=== PATIENT | female | born 1980 | race Caucasian/White ===

== ENCOUNTER → 2017-12-04 | Outpatient (CLI) | END | disposition home or self-care (01) ==

== ENCOUNTER 2018-06-05 10:02 | Inpatient (IN) | payer OTHER ==
[~2018-06-05] VITALS: Ht 160 cm; Wt 75.9 kg
[2018-06-05] MEDS ORDERED: PREN-93 PO (10:20)
--- NOTE | 2018-06-05 11:50 | TRIAGE ---
OB Triage Datetime Report Generated by CPN: 06/05/2018 11:49 Datetime: 06/05/2018 11:27 Stage of : OB Triage Maternal Assessment Level of Consciousness: Fully Conscious DTR's/Clonus: DTRs 1+ Headache: Denies Breath Sounds, Left: Clear and Equal Breath Sounds, Right: Clear and Equal Nausea/Vomiting: Denies RUQ Epigastric Pain: Denies Labor Evaluation Frequency: IRREGULAR Monitor Mode: External Duration (sec)2399: 40-70 Quality: Mild Pattern: Normal: <= 5 Contractions in 10 Minutes Resting Tone Negley: Relaxed Heart Rate FHR Baseline Rate: 145 Monitor Mode: External US Variability: Moderate 6-25 bpm Accelerations: 15X15 Decelerations: None Category: Category I Pain Assessment Pain Scale: 0 Pain Presence: None/Denies Pain Type: N/A Pain Goal: 3 Vaginal Exam Membrane Status: Intact Datetime: 06/05/2018 10:38 Stage of : OB Triage Maternal Assessment Level of Consciousness: Fully Conscious DTR's/Clonus: DTRs 1+ Headache: Denies Blurred Vision: No Respiratory Effort: Unlabored Breath Sounds, Left: Clear and Equal Breath Sounds, Right: Clear and Equal Nausea/Vomiting: Denies RUQ Epigastric Pain: Denies Facial Edema: None Monitor Mode: External Resting Tone Negley: Relaxed Heart Rate FHR Baseline Rate: 145 Monitor Mode: External US Variability: Moderate 6-25 bpm Accelerations: 15X15 Decelerations: None Category: Category I Pain Assessment Pain Scale: 0 Pain Presence: None/Denies Pain Type: N/A Pain Goal: 3 Vaginal Exam Membrane Status: Intact Datetime: 06/05/2018 10:15 Assessment Type: Triage Maternal Assessment Level of Consciousness: Fully Conscious DTR's/Clonus: DTRs 2+; No Clonus Headache: Denies Blurred Vision: No Respiratory Effort: Unlabored; Regular Rhythm; Equal Expansion Breath Sounds, Left: Clear and Equal Breath Sounds, Right: Clear and Equal Nausea/Vomiting: Denies RUQ Epigastric Pain: Denies Lower Extremities Edema: None Degree: None Upper Extremities Edema: None Degree: None Facial Edema: None Fall Risk Assessment History of Falling: (0) No Secondary Diagnosis: (0) No Ambulatory Aid: (0) Bedrest/Nurse Assist IV Therapy: (0) No Gait: (0) Normal/Bedrest/Immobile Mental Status: (0) Oriented to Own Ability Fall Score: 0 Fall Risk Score Definition: No Risk: No action required Datetime: 06/05/2018 10:01 Time of Arrival: 06/05/2018 10:01 EGA: 34.5 Arrived By: Wheelchair Arrived From: Other Unit in Hospital Chief Complaint: PT SENT TO [facility] FOR EXTENDED MONITORING DUE TO DECELS Movement: Present Contractions: Denies/Absent Rupture of Membranes: Denies Vaginal Bleeding: None Vaginal Discharge: Denies Recent Sexual Intercouse: Denies Abdominal Trauma: Not Applicable Additional Patient Complaints: NONE Time Provider Notified: 06/05/2018 10:17 Provider Notified: JENNIFER Initial Plan: MONITOR
[2018-06-05] MEDS ORDERED: ASPI-903 PO (12:30)
[2018-06-05] MEDS: LACTATED RINGER'S 1,000 ML IV SCH ×2 (12:57→21:04)
[2018-06-05] MEDS ORDERED: MAGNESIUM SULFATE 4 GM/100 ML 100 ML IVPB ONE (19:30)
[2018-06-05] MEDS: MAGNESIUM SULFATE 20 GM/500 ML 500 ML IV SCH (20:45)
[2018-06-05] MEDS ORDERED: ONDANSETRON 4 MG INJ IV PRN (21:00)
[2018-06-05] MEDS ORDERED: ACETAMINOPHEN 325 MG TAB PO PRN (21:00)
[2018-06-05] MEDS: BETAMET NA PHOS/AC(6 MG/ML) 2 ML INJ SYG IM SCH (21:47)
[2018-06-06] MEDS: MAGNESIUM SULFATE 20 GM/500 ML 500 ML IV SCH ×2 (06:07→16:19)
[2018-06-06] MEDS: FERROUS SULFATE (EC) 325 MG TAB PO SCH (08:54)
[2018-06-06] MEDS: PRENATAL VITAMIN PO SCH (08:54)
[2018-06-06] MEDS: LACTATED RINGER'S 1,000 ML IV SCH ×2 (10:33→23:44)
--- NOTE | 2018-06-06 18:24 | HP ---
Date/Time of Note Date/Time of Note Late entry DATE: 06/06/18 TIME: 18:20 OB - History Hx of Present Free Text/Dictation 37-year-old female 2 para 1 at 34+ weeks gestation admitted because of evidence of heart tone decelerations of the first or second twin extending over a few minutes Patient was also noticed to have persistent uterine contractions Currently patient has multiple gestations with monochorionic diamniotic Chief Complaint: Uterine contractions Last Menstrual Period: Oct 13, 2017 Estimated Due Date: July 12, 2018 : 2 Para: 1 Care: Good Care Ultrasounds: Abnormal US findings (Gallia/Di twin) Obstetrical Complications: Other (Multiple gestation and advanced maternal age) Medical Complications: Other (Previous section x1) Past Family/Social History * Past Medical, Surgical, Family and Obstetric Histories reviewed from chart. OB Admission Exam Physical Exam HEENT: WNL Heart: Rhythm Normal Lungs: Clear, Equal Abdomen: WNL Extremities: Normal Reflexes: Normal Cervical Dilatation: Fingertip Effacement: 0% Station: -3 Membranes: Intact Heart Rate: 140's (Reactive on both infants) Accelerations: Accelerations Present Decelerations: No Decelerations Varibility: Marked Contractions on Admission: 6-10 Minutes Apart Date/Time Contractions Began: Day of admission Frequency of Contractions: Unknown Duration: Unknown Intensity: Mild Last 72 hours Lab Results Magnesium Level Test 06/06/18 03:18 06/06/18 08:19 06/06/18 11:48 Magnesium Level 4.9 H 5.2 *H 5.2 *H OB Assessment/Plan Reason for admission: labor Other Assessment: Prolonged heart tone deceleration contractions Multiple gestation with mono/Di twin Advanced maternal age Other plan: Start magnesium sulfate for neuro prophylaxis Steroids were ordered and given SUZI CHRISTINA MD Jun 06, 2018 18:24
--- NOTE | 2018-06-06 18:26 | PN ---
Date/Time of Note Date/Time of Note DATE: 06/06/18 TIME: 18:25 OB Subjective Subjective Subjective Currently has no uterine contractions and no complaint of uterine contractions OB Objective Objective Objective Vital signs are stable as well as general physical exam heart tones appear to be reactive without decelerations for over 24 hours On electronic monitoring no contractions seen OB Assessment/Plan Other Assessment: contractions at 34+ weeks with multiple gestation Other plan: We will DC magnesium sulfate after the second dose of betamethasone Place patient on p.o. nifedipine Possibly DC patient following day SUZI CHRISTINA MD Jun 06, 2018 18:26
[2018-06-06] MEDS: BETAMET NA PHOS/AC(6 MG/ML) 2 ML INJ SYG IM SCH (21:53)
[2018-06-06] MEDS: NIFEdipine 10 MG CAP PO SCH (21:54)
[2018-06-07] MEDS: NIFEdipine 10 MG CAP PO SCH ×3 (04:26→17:49)
[2018-06-07] MEDS: FERROUS SULFATE (EC) 325 MG TAB PO SCH (08:28)
[2018-06-07] MEDS: PRENATAL VITAMIN PO SCH (08:28)
--- NOTE | 2018-06-07 16:48 | DS ---
Date/Time of Note Date/Time of Note DATE: 06/07/18 TIME: 16:47 Obstetrical Discharge Record Final Diagnosis Final Diagnosis: not delivered Other Final Diagnosis Multiple gestation and twin contractions Complications Tocolytics: Magnesium Sulfate, Other (Nifedipine) Condition on Discharge Physical Assessment Voiding: Yes Bowel Movement: Yes Breast: Soft, non-tender, Filling Fundus: Other (Fundal height is 39 cm) Abdomen and Incision: Jason is soft and gravid with reactive heart tones On electronic monitoring no contractions seen Episiotomy: Not applicable Calf Tenderness: No Patient Condition: Good SUZI CHRISTINA MD Jun 07, 2018 16:48
--- NOTE | 2018-06-07 16:59 | PD.PPDC ---
[employer]ISH[employer] Discharge Instruction Provider Information Physician Information 37-year-old female admitted with contractions at 34+ weeks of multiple gestation contractions were tocolysed using magnesium sulfate and thereafter p.o. nifedipine Diagnosis [id number] Final Diagnosis: [id number] labor Condition [id number] Patient Condition: Tauru2u Good Diet [id number] Diet: [id number] Resume Regular Diet Activity/Restrictions [id number] Activity: Blqbd1y Bedrest May Shower [id number] Restrictions: [id number] No Exercising Nothing in the Vagina [id number] Return to Work or School: [id number] Jun 07, 2018 (until 2 months afer delivery ) Follow-up Follow-up with Physician: 3, Day/Days (In antepartum testing unit) Return to clinic for Comment: Pelvic and bedrest until delivery SUZI CHRISTINA MD Jun 07, 2018 16:59
[2018-06-07] MEDS ORDERED: NIFE10CA PO (17:00)
== END 2018-06-07 19:40 | disposition home or self-care (01) | DRG 831 ==
LOC: OBT 10:02 → L-D 10:02 → PP1 11:37 → OBT 11:47
PROVIDERS: ADMIT Obstetrics & Gynecology; ATTEND Obstetrics & Gynecology
DX: O36.8330 Maternal care for abnormalities of the fetal heart rate or rhythm, third trimester, not applicable or unspecified (principal); O60.03 Preterm labor without delivery, third trimester; Z3A.34 34 weeks gestation of pregnancy; O30.033 Twin pregnancy, monochorionic/diamniotic, third trimester; O34.219 Maternal care for unspecified type scar from previous cesarean delivery
CPT/HCPCS: 76818; 83735; G0463; J0702; J2405; J3475; J7120

== ENCOUNTER 2018-06-14 20:34 | Inpatient (IN) | payer OTHER ==
[~2018-06-14] VITALS: Ht 160 cm; Wt 76.5 kg
[~2018-06-14 20:34] MED LIST: ASPI-903 PO; NIFE10CA PO; PREN-93 PO
[2018-06-14 20:48] VITALS: BP 118/83; PULSE 113; RESP 19; Ht 160 cm; Wt 76.5 kg
[2018-06-14] MEDS ORDERED: FER325 PO (21:03)
[2018-06-14] MEDS ORDERED: CITRACAL PO (21:03)
[2018-06-14] MEDS ORDERED: TERBUTALINE 1 MG/ML INJ SC ONE (21:30)
[2018-06-14] MEDS: LACTATED RINGER'S 1,000 ML IV SCH ×2 (21:35→22:09)
[2018-06-15] MEDS: NIFEdipine 10 MG CAP PO SCH ×3 (00:06→11:53)
--- NOTE | 2018-06-15 00:35 | TRIAGE ---
OB Triage Datetime Report Generated by CPN: 06/15/2018 00:34 Datetime: 06/15/2018 00:15 Monitor Mode: External Monitor Mode: External US Comments: MONITOR ON, PT IN FBC1 Datetime: 06/15/2018 00:09 Labor Evaluation Frequency: X3/HR Monitor Mode: External Duration (sec)2399: 50-110 Quality: Mild Resting Tone [place]: Relaxed Contraction Comments: PT DENIES FEELING CONTRACTIONS Heart Rate FHR Baseline Rate: 140 Monitor Mode: External US Variability: Moderate 6-25 bpm Accelerations: 15X15 Decelerations: None Category: Category I Comments: MONITOR OFF, PT AMBULATED TO FBC1 ACCOMPANIED BY RN _ FOB Pain Assessment Pain Scale: 0 Pain Presence: None/Denies Pain Type: N/A Datetime: 06/14/2018 23:57 Stage of : Antepartum Assessment Type: Admission Assessment Vaginal Bleeding: None Maternal Assessment Level of Consciousness: Fully Conscious DTR's/Clonus: DTRs 2+; No Clonus Headache: Denies Blurred Vision: No Respiratory Effort: Unlabored; Regular Rhythm; Equal Expansion Breath Sounds, Left: Clear and Equal Breath Sounds, Right: Clear and Equal Nausea/Vomiting: Denies RUQ Epigastric Pain: Denies Lower Extremities Edema: None Degree: None Upper Extremities Edema: None Degree: None Facial Edema: None Fall Risk Assessment History of Falling: (0) No Secondary Diagnosis: (0) No Ambulatory Aid: (0) Bedrest/Nurse Assist IV Therapy: (20) Yes Gait: (0) Normal/Bedrest/Immobile Mental Status: (0) Oriented to Own Ability Fall Score: 20 Fall Risk Score Definition: No Risk: No action required Pain Assessment Pain Scale: 0 Pain Presence: None/Denies Pain Type: N/A Datetime: 06/14/2018 23:35 Time of Arrival: 06/14/2018 23:35 EGA: 36.0 Arrived By: Wheelchair Arrived From: Other Unit in Hospital Datetime: 06/14/2018 23:10 Labor Evaluation Frequency: NONE Monitor Mode: External Duration (sec)2399: 0 Resting Tone [place]: Relaxed Heart Rate FHR Baseline Rate: 140 Monitor Mode: External US FHR Baseline Changes: No Baseline Change Variability: Moderate 6-25 bpm Accelerations: 15X15 Decelerations: None Category: Category I Pain Assessment Pain Scale: 0 Pain Presence: None/Denies Pain Type: N/A Datetime: 06/14/2018 23:01 Monitor Mode: External Monitor Mode: External US Datetime: 06/14/2018 22:30 Monitor Mode: External Datetime: 06/14/2018 22:28 Monitor Mode: External Datetime: 06/14/2018 22:10 Labor Evaluation Frequency: none Monitor Mode: External Duration (sec)2399: 0 Resting Tone [place]: Relaxed Contraction Comments: no contractions noted in the past half hour, some uterine irritability noted; pt denies feeling any contractions since administration of Terbutaline and start of IV and no contra ctions palpated by RN Heart Rate FHR Baseline Rate: 140 Monitor Mode: External US Variability: Moderate 6-25 bpm Accelerations: 15X15 Decelerations: None Category: Category I Pain Assessment Pain Scale: 0 Pain Presence: None/Denies Pain Type: N/A Datetime: 06/14/2018 22:07 Pain Assessment Pain Scale: 0 Pain Presence: None/Denies Pain Type: N/A Datetime: 06/14/2018 21:36 Labor Evaluation Frequency: 1-6 Monitor Mode: External Duration (sec)2399: 50-90 Quality: Moderate Resting Tone [place]: Relaxed Heart Rate FHR Baseline Rate: 140 Monitor Mode: External US Variability: Moderate 6-25 bpm Accelerations: 15X15 Decelerations: None Category: Category I Datetime: 06/14/2018 21:10 Labor Evaluation Frequency: 3-7 Monitor Mode: External Duration (sec)2399: 60-90 Quality: Moderate Resting Tone [place]: Relaxed Heart Rate FHR Baseline Rate: 145 Monitor Mode: External US Variability: Moderate 6-25 bpm Accelerations: 15X15 Decelerations: None Category: Category I Datetime: 06/14/2018 21:08 Vaginal Exam Dilatation (cms): 0.5 Station: -3 Exam By: MARIUSZ RN Membrane Status: Intact Vaginal Bleeding: None Cervix, Consistency: Moderate Cervix, Position: Midposition Datetime: 06/14/2018 20:53 Time of Arrival: 06/14/2018 20:27 EGA: 36.0 Arrived By: Ambulatory Arrived From: Home Chief Complaint: UC'S SINCE YESTERDAY 06/12 AROUND 0900 (STRONGER WHEN SHE IS STANDING OR WALKING, WE BRIT WHEN RESTING) Movement: Present Contractions: Regular Time Contractions Began: 06/12/2018 09:00 Contractions: [id number] Rupture of Membranes: Denies Vaginal Bleeding: None Vaginal Discharge: Denies Recent Sexual Intercouse: Denies Abdominal Trauma: Not Applicable Patient Complaints: Contractions Additional Patient Complaints: NAUSEA X1 EARLIER TODAY Time Provider Notified: 06/14/2018 21:06 Provider Notified: Initial Plan: VS, EFM, SVE TERB X1, IV HYDRATION, UA, CBC, BPP w/GÓMEZ Datetime: 06/14/2018 20:48 Maternal Assessment Level of Consciousness: Fully Conscious DTR's/Clonus: DTRs 2+; No Clonus Headache: Denies Blurred Vision: No Respiratory Effort: Unlabored; Regular Rhythm; Equal Expansion Breath Sounds, Left: Clear and Equal Breath Sounds, Right: Clear and Equal Nausea/Vomiting: Hx of Nausea/Vomiting (Annotations: PT STATES SHE FELT NAUSEOUS EARLIER TODAY BUT NOT CURRENTLY) RUQ Epigastric Pain: Denies Lower Extremities Edema: None Degree: None Upper Extremities Edema: None Degree: None Facial Edema: None Temperature Route: Oral Fall Risk Assessment History of Falling: (0) No Secondary Diagnosis: (0) No Ambulatory Aid: (0) Bedrest/Nurse Assist IV Therapy: (0) No Gait: (0) Normal/Bedrest/Immobile Mental Status: (0) Oriented to Own Ability Fall Score: 0 Fall Risk Score Definition: No Risk: No action required Pain Assessment Pain Scale: 7 Pain Presence: Intermittent Pain Type: Contraction Pain Location: Abdomen; Back Pain Relief Measures: Comfort Measures Datetime: 06/07/2018 17:46 Labor Evaluation Frequency: 1 Monitor Mode: External Duration (sec)2399: 60 Quality: Mild Resting Tone [place]: Relaxed Heart Rate FHR Baseline Rate: 135 Monitor Mode: External US FHR Baseline Changes: No Baseline Change Variability: Moderate 6-25 bpm Accelerations: 15X15 Decelerations: None Category: Category I Pain Presence: None/Denies Datetime: 06/07/2018 16:29 Labor Evaluation Frequency: 1 Monitor Mode: External Duration (sec)2399: 120 Quality: Mild Resting Tone [place]: Relaxed Datetime: 06/07/2018 12:09 Labor Evaluation Frequency: 0 Monitor Mode: External Resting Tone [place]: Relaxed Datetime: 06/07/2018 11:29 Labor Evaluation Frequency: 0 Monitor Mode: External Resting Tone [place]: Relaxed Datetime: 06/07/2018 11:06 Contraction Comments: toco on Datetime: 06/07/2018 09:56 Comments: monitors off Datetime: 06/07/2018 08:21 Assessment Type: Ongoing Assessment Maternal Assessment Level of Consciousness: Fully Conscious DTR's/Clonus: DTRs 2+; No Clonus Headache: Denies Blurred Vision: No Respiratory Effort: Unlabored; Regular Rhythm; Equal Expansion Breath Sounds, Left: Clear and Equal Breath Sounds, Right: Clear and Equal Nausea/Vomiting: Denies RUQ Epigastric Pain: Denies Facial Edema: None Fall Risk Assessment History of Falling: (0) No Secondary Diagnosis: (0) No Ambulatory Aid: (0) Bedrest/Nurse Assist Gait: (0) Normal/Bedrest/Immobile Mental Status: (0) Oriented to Own Ability Datetime: 06/07/2018 07:56 Labor Evaluation Frequency: 1 Monitor Mode: External Duration (sec)2399: 60 Quality: Mild Resting Tone [place]: Relaxed Heart Rate FHR Baseline Rate: 130 Monitor Mode: External US FHR Baseline Changes: No Baseline Change Variability: Moderate 6-25 bpm Accelerations: 15X15 Decelerations: None Category: Category I Pain Presence: None/Denies Datetime: 06/07/2018 07:11 Labor Evaluation Frequency: 0 Monitor Mode: External Resting Tone [place]: Relaxed Heart Rate FHR Baseline Rate: 130 Monitor Mode: External US FHR Baseline Changes: No Baseline Change Variability: Moderate 6-25 bpm Accelerations: 15X15 Decelerations: None Category: Category I Pain Presence: None/Denies Datetime: 06/07/2018 06:00 Labor Evaluation Frequency: 0 Monitor Mode: External Duration (sec)2399: denies Resting Tone [place]: Relaxed Heart Rate FHR Baseline Rate: 140 Monitor Mode: External US Variability: Moderate 6-25 bpm Accelerations: 15X15 Decelerations: None Category: Category I Comments: blue line Pain Presence: None/Denies Datetime: 06/07/2018 05:00 Labor Evaluation Frequency: 0 Monitor Mode: External Resting Tone [place]: Relaxed Heart Rate FHR Baseline Rate: 140 Monitor Mode: External US Variability: Moderate 6-25 bpm Accelerations: 15X15 Decelerations: None Category: Category I Comments: blue line Pain Presence: None/Denies Datetime: 06/07/2018 04:24 Maternal Assessment Level of Consciousness: Fully Conscious Headache: Denies Blurred Vision: No Temperature Route: Oral Pain Presence: None/Denies Datetime: 06/07/2018 04:00 Labor Evaluation Frequency: x2 Monitor Mode: External Duration (sec)2399: 40-70 Quality: Mild Resting Tone [place]: Relaxed Heart Rate FHR Baseline Rate: 125 Monitor Mode: External US Variability: Moderate 6-25 bpm Accelerations: 15X15 Decelerations: None Category: Category I Comments: blue line Pain Presence: None/Denies Datetime: 06/07/2018 03:58 Stage of : Antepartum Datetime: 06/07/2018 03:00 Labor Evaluation Frequency: 0 Monitor Mode: External Resting Tone [place]: Relaxed Heart Rate FHR Baseline Rate: 130 Monitor Mode: External US Variability: Moderate 6-25 bpm Accelerations: 15X15 Decelerations: None Category: Category I Comments: blue line. Datetime: 06/07/2018 02:00 Labor Evaluation Frequency: X1 Monitor Mode: External Duration (sec)2399: 60 Quality: Mild Resting Tone [place]: Relaxed Heart Rate FHR Baseline Rate: 135 Monitor Mode: External US Variability: Moderate 6-25 bpm Accelerations: 15X15 Decelerations: None Category: Category I Comments: BLUE LINE. PT IS ON HER BACK. Pain Presence: None/Denies Datetime: 06/07/2018 01:22 Comments: ULTRASOUND DONE,RESUMED TO CFM. Datetime: 06/07/2018 01:02 Comments: ULTRASOUND AT BEDSIDE. Datetime: 06/07/2018 01:00 Labor Evaluation Frequency: IRREGULAR Duration (sec)2399: 40-110 Quality: Mild Resting Tone [place]: Relaxed Heart Rate FHR Baseline Rate: 135 Monitor Mode: External US Variability: Moderate 6-25 bpm Accelerations: 15X15 Decelerations: None Category: Category I Comments: BLUE LINE. Pain Presence: None/Denies Pain Assessment Comments: PT DENIES FEELING THE UC'S. Datetime: 06/07/2018 00:00 Labor Evaluation Frequency: OCCASIONAL Monitor Mode: External Duration (sec)2399: 50-70 Quality: Mild Resting Tone [place]: Relaxed Heart Rate FHR Baseline Rate: 135 Monitor Mode: External US Variability: Moderate 6-25 bpm Accelerations: 15X15 Decelerations: Variable Category: Category II Pain Presence: None/Denies Datetime: 06/06/2018 23:00 Labor Evaluation Frequency: OCCASIONAL Monitor Mode: External Duration (sec)2399: 50-60 Quality: Mild Resting Tone [place]: Relaxed Heart Rate FHR Baseline Rate: 135 Monitor Mode: External US Variability: Moderate 6-25 bpm Accelerations: 10X10 Decelerations: None Category: Category I Comments: BLUE LINE. Pain Presence: None/Denies Datetime: 06/06/2018 22:00 Labor Evaluation Frequency: x2 Monitor Mode: External Duration (sec)2399: 40-70 Quality: Mild Resting Tone [place]: Relaxed Heart Rate FHR Baseline Rate: 140 Monitor Mode: External US Variability: Moderate 6-25 bpm Accelerations: 15X15 Decelerations: None Category: Category I Comments: blue line Pain Presence: None/Denies Datetime: 06/06/2018 21:00 Labor Evaluation Frequency: x1 Monitor Mode: External Duration (sec)2399: 70 Quality: Mild Resting Tone [place]: Relaxed Heart Rate FHR Baseline Rate: 140 Monitor Mode: External US Variability: Moderate 6-25 bpm Accelerations: 15X15 Decelerations: None Category: Category I Comments: blue line. Pain Presence: None/Denies Datetime: 06/06/2018 20:00 Stage of : Antepartum Assessment Type: Ongoing Assessment Maternal Assessment Level of Consciousness: Fully Conscious DTR's/Clonus: DTRs 2+; No Clonus Headache: Denies Blurred Vision: No Respiratory Effort: Unlabored; Regular Rhythm; Equal Expansion Breath Sounds, Left: Clear and Equal Breath Sounds, Right: Clear and Equal Nausea/Vomiting: Denies RUQ Epigastric Pain: Denies Lower Extremities Edema: None Degree: None Upper Extremities Edema: None Degree: None Facial Edema: None Temperature Route: Oral Fall Risk Assessment History of Falling: (0) No Secondary Diagnosis: (0) No Ambulatory Aid: (0) Bedrest/Nurse Assist IV Therapy: (0) No Gait: (0) Normal/Bedrest/Immobile Mental Status: (0) Oriented to Own Ability Fall Score: 0 Fall Risk Score Definition: No Risk: No action required Labor Evaluation Frequency: occasional Monitor Mode: External Duration (sec)2399: 50-70 Quality: Mild Resting Tone [place]: Relaxed Contraction Comments: abdomen soft upon palpation,pt denies feeling any uc's. Heart Rate FHR Baseline Rate: 130 Monitor Mode: External US Variability: Moderate 6-25 bpm Accelerations: 15X15 Decelerations: None Category: Category I Comments: blue line,very difficult to trace fetus,pt likes to be in her side and frecuently changin g positions. Pain Presence: None/Denies Membrane Status: Intact Datetime: 06/06/2018 19:00 Stage of : Antepartum Maternal Assessment Level of Consciousness: Fully Conscious DTR's/Clonus: DTRs 2+ Headache: Denies Breath Sounds, Left: Clear and Equal Breath Sounds, Right: Clear and Equal Nausea/Vomiting: Denies RUQ Epigastric Pain: Denies Labor Evaluation Frequency: x2 Monitor Mode: External Duration (sec)2399: 60 Quality: Mild Resting Tone [place]: Relaxed Heart Rate FHR Baseline Rate: 125 Monitor Mode: External US FHR Baseline Changes: No Baseline Change Variability: Moderate 6-25 bpm Accelerations: 15X15 Decelerations: None Pain Presence: None/Denies Pain Type: N/A Datetime: 06/06/2018 18:15 Stage of : Antepartum Datetime: 06/06/2018 17:56 Stage of : Antepartum Maternal Assessment Level of Consciousness: Fully Conscious DTR's/Clonus: DTRs 2+ Headache: Denies Breath Sounds, Left: Clear and Equal Breath Sounds, Right: Clear and Equal Nausea/Vomiting: Denies RUQ Epigastric Pain: Denies Labor Evaluation Frequency: x4 Monitor Mode: External Duration (sec)2399: 60 Quality: Mild Resting Tone [place]: Relaxed Heart Rate FHR Baseline Rate: 125 Monitor Mode: External US FHR Baseline Changes: No Baseline Change Variability: Moderate 6-25 bpm Accelerations: 15X15 Decelerations: None Pain Presence: None/Denies Pain Type: N/A Datetime: 06/06/2018 16:56 Stage of : Antepartum Maternal Assessment Level of Consciousness: Fully Conscious DTR's/Clonus: DTRs 2+ Headache: Denies Breath Sounds, Left: Clear and Equal Breath Sounds, Right: Clear and Equal Nausea/Vomiting: Denies RUQ Epigastric Pain: Denies Labor Evaluation Frequency: x2 Monitor Mode: External Duration (sec)2399: 60 Quality: Mild Resting Tone [place]: Relaxed Heart Rate FHR Baseline Rate: 125 Monitor Mode: External US FHR Baseline Changes: No Baseline Change Variability: Moderate 6-25 bpm Accelerations: 15X15 Decelerations: None Pain Presence: None/Denies Pain Type: N/A Datetime: 06/06/2018 16:30 Stage of : Antepartum Pain Assessment Pain Scale: 5 Pain Presence: Constant Pain Type: Ache Pain Location: Head Pain Relief Measures: Comfort Measures Datetime: 06/06/2018 16:00 Stage of : Antepartum Temperature Route: Oral Datetime: 06/06/2018 15:56 Maternal Assessment Level of Consciousness: Fully Conscious DTR's/Clonus: DTRs 2+ Headache: Denies Breath Sounds, Left: Clear and Equal Breath Sounds, Right: Clear and Equal Nausea/Vomiting: Denies RUQ Epigastric Pain: Denies Labor Evaluation Frequency: x2 Monitor Mode: External Duration (sec)2399: 60 Quality: Mild Resting Tone [place]: Relaxed Heart Rate FHR Baseline Rate: 125 Monitor Mode: External US FHR Baseline Changes: No Baseline Change Variability: Moderate 6-25 bpm Accelerations: 15X15 Decelerations: None Pain Presence: None/Denies Pain Type: N/A Datetime: 06/06/2018 14:56 Maternal Assessment Level of Consciousness: Fully Conscious DTR's/Clonus: DTRs 2+ Headache: Denies Breath Sounds, Left: Clear and Equal Breath Sounds, Right: Clear and Equal Nausea/Vomiting: Denies RUQ Epigastric Pain: Denies Labor Evaluation Frequency: x2 Monitor Mode: External Duration (sec)2399: 60 Quality: Mild Resting Tone [place]: Relaxed Heart Rate FHR Baseline Rate: 125 Monitor Mode: External US FHR Baseline Changes: No Baseline Change Variability: Moderate 6-25 bpm Accelerations: 15X15 Decelerations: None Pain Presence: None/Denies Pain Type: N/A Datetime: 06/06/2018 13:56 Maternal Assessment Level of Consciousness: Fully Conscious DTR's/Clonus: DTRs 2+ Headache: Denies Breath Sounds, Left: Clear and Equal Breath Sounds, Right: Clear and Equal Nausea/Vomiting: Denies RUQ Epigastric Pain: Denies Labor Evaluation Frequency: x4 Monitor Mode: External Duration (sec)2399: 60 Quality: Mild Resting Tone [place]: Relaxed Heart Rate FHR Baseline Rate: 125 Monitor Mode: External US FHR Baseline Changes: No Baseline Change Variability: Moderate 6-25 bpm Accelerations: 15X15 Decelerations: None Pain Presence: None/Denies Pain Type: N/A Datetime: 06/06/2018 12:56 Maternal Assessment Level of Consciousness: Fully Conscious DTR's/Clonus: DTRs 2+ Headache: Denies Breath Sounds, Left: Clear and Equal Breath Sounds, Right: Clear and Equal Nausea/Vomiting: Denies RUQ Epigastric Pain: Denies Labor Evaluation Frequency: x4 Monitor Mode: External Duration (sec)2399: 60 Quality: Mild Resting Tone [place]: Relaxed Heart Rate FHR Baseline Rate: 125 Monitor Mode: External US FHR Baseline Changes: No Baseline Change Variability: Moderate 6-25 bpm Accelerations: 15X15 Decelerations: None Pain Presence: None/Denies Pain Type: N/A Datetime: 06/06/2018 12:23 Stage of : Antepartum Temperature Route: Oral Datetime: 06/06/2018 12:15 Monitor Mode: External US Datetime: 06/06/2018 11:56 Maternal Assessment Level of Consciousness: Fully Conscious DTR's/Clonus: DTRs 2+ Headache: Denies Breath Sounds, Left: Clear and Equal Breath Sounds, Right: Clear and Equal Nausea/Vomiting: Denies RUQ Epigastric Pain: Denies Labor Evaluation Frequency: x4 Monitor Mode: External Duration (sec)2399: 60 Quality: Mild Resting Tone [place]: Relaxed Heart Rate FHR Baseline Rate: 125 Monitor Mode: External US FHR Baseline Changes: No Baseline Change Variability: Moderate 6-25 bpm Accelerations: 15X15 Decelerations: None Pain Presence: None/Denies Pain Type: N/A Datetime: 06/06/2018 11:11 Monitor Mode: External US Datetime: 06/06/2018 10:56 Stage of : Antepartum Labor Evaluation Frequency: x1 Monitor Mode: External Duration (sec)2399: 60 Quality: Mild Resting Tone [place]: Relaxed Heart Rate FHR Baseline Rate: 125 Monitor Mode: External US FHR Baseline Changes: No Baseline Change Variability: Moderate 6-25 bpm Accelerations: 15X15 Decelerations: None Pain Presence: None/Denies Pain Type: N/A Datetime: 06/06/2018 09:56 Maternal Assessment Level of Consciousness: Fully Conscious DTR's/Clonus: DTRs 2+ Headache: Denies Breath Sounds, Left: Clear and Equal Breath Sounds, Right: Clear and Equal Nausea/Vomiting: Denies RUQ Epigastric Pain: Denies Labor Evaluation Frequency: x1 Monitor Mode: External Duration (sec)2399: 60 Quality: Mild Resting Tone [place]: Relaxed Heart Rate FHR Baseline Rate: 125 Monitor Mode: External US FHR Baseline Changes: No Baseline Change Variability: Moderate 6-25 bpm Accelerations: 15X15 Decelerations: None Pain Presence: None/Denies Pain Type: N/A Datetime: 06/06/2018 08:56 Labor Evaluation Frequency: X4 Monitor Mode: External Duration (sec)2399: 60 Quality: Mild Resting Tone [place]: Relaxed Heart Rate FHR Baseline Rate: 125 Monitor Mode: External US FHR Baseline Changes: No Baseline Change Variability: Moderate 6-25 bpm Accelerations: 15X15 Decelerations: None Pain Presence: None/Denies Pain Type: N/A Datetime: 06/06/2018 07:56 Labor Evaluation Frequency: x5 Monitor Mode: External Duration (sec)2399: 70-110 Quality: Mild Resting Tone [place]: Relaxed Heart Rate FHR Baseline Rate: 130 Monitor Mode: External US Variability: Moderate 6-25 bpm Accelerations: 15X15 Decelerations: None Pain Presence: None/Denies Pain Type: N/A Datetime: 06/06/2018 07:53 Stage of : Antepartum Assessment Type: Ongoing Assessment Maternal Assessment Level of Consciousness: Fully Conscious DTR's/Clonus: DTRs 2+; No Clonus Headache: Denies Blurred Vision: No Respiratory Effort: Unlabored; Regular Rhythm; Equal Expansion Breath Sounds, Left: Clear and Equal Breath Sounds, Right: Clear and Equal Nausea/Vomiting: Denies RUQ Epigastric Pain: Denies Facial Edema: None Fall Risk Assessment History of Falling: (0) No Secondary Diagnosis: (0) No Ambulatory Aid: (0) Bedrest/Nurse Assist IV Therapy: (0) No Gait: (0) Normal/Bedrest/Immobile Mental Status: (0) Oriented to Own Ability Fall Score: 0 Fall Risk Score Definition: No Risk: No action required Pain Assessment Pain Scale: 0 Pain Presence: None/Denies Pain Type: N/A Datetime: 06/06/2018 07:22 Stage of : Antepartum Datetime: 06/06/2018 06:56 Labor Evaluation Frequency: x5 Monitor Mode: External Duration (sec)2399: 70-110 Quality: Mild Resting Tone [place]: Relaxed Heart Rate FHR Baseline Rate: 130 Monitor Mode: External US Variability: Moderate 6-25 bpm Accelerations: 15X15 Decelerations: None Category: Category I Pain Presence: None/Denies Pain Type: N/A Datetime: 06/06/2018 06:00 Maternal Assessment Level of Consciousness: Fully Conscious DTR's/Clonus: DTRs 2+; No Clonus Labor Evaluation Frequency: X5 Monitor Mode: External Duration (sec)2399: 50-70 Quality: Mild Resting Tone [place]: Relaxed Heart Rate FHR Baseline Rate: 130 Monitor Mode: External US Variability: Moderate 6-25 bpm Accelerations: None Decelerations: None Category: Category I Pain Presence: None/Denies Pain Type: N/A Datetime: 06/06/2018 05:00 Labor Evaluation Frequency: X8 Monitor Mode: External Duration (sec)2399: 70-110 Quality: Mild Resting Tone [place]: Relaxed Heart Rate FHR Baseline Rate: 125 Monitor Mode: External US Variability: Moderate 6-25 bpm Accelerations: 15X15 Decelerations: None Category: Category I Pain Presence: None/Denies Pain Type: N/A Datetime: 06/06/2018 04:00 Maternal Assessment Level of Consciousness: Fully Conscious DTR's/Clonus: DTRs 2+; No Clonus Breath Sounds, Left: Clear and Equal Breath Sounds, Right: Clear and Equal Labor Evaluation Frequency: IRREG Monitor Mode: External Duration (sec)2399: 60-100 Duration (sec)2399: 60-90 Quality: Mild Resting Tone [place]: Relaxed Heart Rate FHR Baseline Rate: 120 Monitor Mode: External US Variability: Moderate 6-25 bpm Accelerations: 15X15 Decelerations: None Category: Category I Pain Presence: None/Denies Pain Type: N/A Datetime: 06/06/2018 02:54 Pain Presence: None/Denies Pain Type: N/A Datetime: 06/06/2018 02:03 Monitor Mode: External US Datetime: 06/06/2018 02:00 Maternal Assessment Level of Consciousness: Fully Conscious DTR's/Clonus: DTRs 2+; No Clonus Breath Sounds, Left: Clear and Equal Breath Sounds, Right: Clear and Equal Labor Evaluation Frequency: IRREG Monitor Mode: External Duration (sec)2399: 60-120 Quality: Mild Resting Tone [place]: Relaxed Heart Rate FHR Baseline Rate: 120 Monitor Mode: External US Variability: Moderate 6-25 bpm Accelerations: 15X15 Decelerations: None Category: Category I Pain Presence: None/Denies Pain Type: N/A Pain Assessment Comments: PT SLEEPING WITH EVEN UNLABORED BREATHING Datetime: 06/06/2018 01:01 Labor Evaluation Frequency: X3 Monitor Mode: External Duration (sec)2399: 100 Quality: Mild Resting Tone [place]: Relaxed Heart Rate FHR Baseline Rate: 135 Monitor Mode: External US Variability: Moderate 6-25 bpm Accelerations: 15X15 Decelerations: None Category: Category I Pain Presence: None/Denies Pain Type: N/A Datetime: 06/06/2018 01:00 Labor Evaluation Frequency: X2 Monitor Mode: External Duration (sec)2399: 80 Quality: Mild Resting Tone [place]: Relaxed Heart Rate FHR Baseline Rate: 130 Monitor Mode: External US Variability: Moderate 6-25 bpm Accelerations: 15X15 Decelerations: None Category: Category I Pain Presence: None/Denies Pain Type: N/A Datetime: 06/06/2018 00:46 Contraction Comments: TOCO ADJUSTED Datetime: 06/06/2018 00:00 Maternal Assessment Level of Consciousness: Fully Conscious DTR's/Clonus: DTRs 2+; No Clonus Breath Sounds, Left: Clear and Equal Breath Sounds, Right: Clear and Equal Labor Evaluation Frequency: X4 Monitor Mode: External Duration (sec)2399: 70-90 Quality: Mild Resting Tone [place]: Relaxed Heart Rate FHR Baseline Rate: 140 Monitor Mode: External US Variability: Moderate 6-25 bpm Accelerations: 15X15 Decelerations: None Category: Category I Pain Presence: None/Denies Pain Type: N/A Datetime: 06/05/2018 23:00 Headache: Denies Labor Evaluation Frequency: NONE Monitor Mode: External Resting Tone [place]: Relaxed Heart Rate FHR Baseline Rate: 135 Monitor Mode: External US Variability: Moderate 6-25 bpm Accelerations: None Decelerations: None Comments: POOR QUALITY TRACING Pain Presence: None/Denies Pain Type: N/A Datetime: 06/05/2018 22:00 Stage of : Antepartum DTR's/Clonus: DTRs 2+; No Clonus Headache: Denies Blurred Vision: No Labor Evaluation Frequency: X1 Monitor Mode: External Duration (sec)2399: 90 Quality: Mild Heart Rate FHR Baseline Rate: 135 Variability: Moderate 6-25 bpm Pain Type: N/A Datetime: 06/05/2018 21:00 Stage of : Antepartum Labor Evaluation Frequency: IRREG Duration (sec)2399: 50-80 Contraction Comments: PT DENIES FEELING CONTRACTIONS. Monitor Mode: External US Comments: LOC-RN AT BEDSIDE FOR ENTIRE HOUR TRYING TO FIND THE FHR THAT WOULD TRACE. FHT'S AUDIBL E WITH DOPPLER AND MONITOR BUT NOT GOOD ENOUGH TO TRACE FOR BOTH BABIES. Datetime: 06/05/2018 20:45 Pain Assessment Pain Scale: 5 Pain Presence: Constant Pain Type: Ache Pain Location: Head Pain Goal: 2 Pain Relief Measures: Comfort Measures Pain Assessment Comments: PT GOT A SLIGHT HEADACHE DURING THE MAGNESIUM BOLUS BUT DID NOT WANT ANYT DOMONIQUE FOR PAIN UNTIL SHE FELT LESS NAUSEOUS. Datetime: 06/05/2018 20:38 Monitor Mode: External US Datetime: 06/05/2018 20:00 Labor Evaluation Frequency: X8 Monitor Mode: External Duration (sec)2399: 60-90 Quality: Mild Resting Tone [place]: Relaxed Heart Rate FHR Baseline Rate: 140 Monitor Mode: External US Variability: Moderate 6-25 bpm Accelerations: 15X15 Decelerations: Variable Category: Category II Pain Presence: None/Denies Pain Type: N/A Pain Assessment Comments: PT DENIES FEELING ANY CARMPING Datetime: 06/05/2018 19:20 Stage of : Antepartum Assessment Type: Ongoing Assessment Maternal Assessment Level of Consciousness: Fully Conscious DTR's/Clonus: DTRs 2+; No Clonus Headache: Denies Blurred Vision: No Respiratory Effort: Unlabored; Regular Rhythm; Equal Expansion Breath Sounds, Left: Clear and Equal Breath Sounds, Right: Clear and Equal Nausea/Vomiting: Denies RUQ Epigastric Pain: Denies Facial Edema: None Temperature Route: Oral Fall Risk Assessment History of Falling: (0) No Secondary Diagnosis: (0) No Ambulatory Aid: (0) Bedrest/Nurse Assist IV Therapy: (0) No Gait: (0) Normal/Bedrest/Immobile Mental Status: (0) Oriented to Own Ability Fall Score: 0 Fall Risk Score Definition: No Risk: No action required Monitor Mode: External Contraction Comments: PT STATES SHE FEELS NO CRAMPING Monitor Mode: External US Comments: PT STATES + FM Pain Presence: None/Denies Pain Type: N/A Membrane Status: Intact Vaginal Bleeding: None Datetime: 06/05/2018 18:55 Labor Evaluation Frequency: x8 Monitor Mode: Palpation Duration (sec)2399: 50-80 Quality: Mild Pattern: Normal: <= 5 Contractions in 10 Minutes Resting Tone [place]: Relaxed Heart Rate FHR Baseline Rate: 135 Monitor Mode: External US Variability: Moderate 6-25 bpm Accelerations: 15X15 Decelerations: None Category: Category I Pain Presence: None/Denies Pain Type: N/A Datetime: 06/05/2018 18:00 Labor Evaluation Frequency: 2-5 Monitor Mode: External Duration (sec)2399: 50-70 Quality: Mild Pattern: Normal: <= 5 Contractions in 10 Minutes Resting Tone [place]: Relaxed Contraction Comments: pt. denies uc Heart Rate FHR Baseline Rate: 145 Monitor Mode: External US Variability: Moderate 6-25 bpm Accelerations: 15X15 Decelerations: None Category: Category I Pain Assessment Pain Scale: 0 Pain Presence: None/Denies Pain Type: N/A Pain Assessment Comments: 3 Datetime: 06/05/2018 17:00 Labor Evaluation Frequency: 2-5 Monitor Mode: External Duration (sec)2399: 50-100 Quality: Mild Pattern: Normal: <= 5 Contractions in 10 Minutes Resting Tone [place]: Relaxed Heart Rate FHR Baseline Rate: 140 Monitor Mode: External US Variability: Moderate 6-25 bpm Accelerations: 15X15 Decelerations: None Category: Category I Pain Presence: None/Denies Pain Type: N/A Datetime: 06/05/2018 16:00 Labor Evaluation Frequency: 2-5 Monitor Mode: External Duration (sec)2399: 50-70 Quality: Mild Pattern: Normal: <= 5 Contractions in 10 Minutes Resting Tone [place]: Relaxed Heart Rate FHR Baseline Rate: 145 Monitor Mode: External US Variability: Moderate 6-25 bpm Accelerations: 15X15 Decelerations: None Category: Category I Pain Presence: None/Denies Pain Type: N/A Datetime: 06/05/2018 15:00 Labor Evaluation Frequency: 2-5 Monitor Mode: Palpation Duration (sec)2399: 50-90 Quality: Mild Pattern: Normal: <= 5 Contractions in 10 Minutes Resting Tone [place]: Relaxed Heart Rate FHR Baseline Rate: 145 Monitor Mode: External US Variability: Moderate 6-25 bpm Accelerations: 15X15 Decelerations: None Category: Category I Pain Presence: None/Denies Pain Type: N/A Datetime: 06/05/2018 14:01 Labor Evaluation Frequency: 2-7 Duration (sec)2399: 50-90 Quality: Mild Pattern: Normal: <= 5 Contractions in 10 Minutes Resting Tone [place]: Relaxed Heart Rate FHR Baseline Rate: 140 Monitor Mode: External US Variability: Moderate 6-25 bpm Accelerations: 15X15 Decelerations: None Category: Category I Pain Presence: None/Denies Pain Type: N/A Datetime: 06/05/2018 13:01 Labor Evaluation Frequency: 2-5 Monitor Mode: Palpation Duration (sec)2399: 40-100 Quality: Mild Pattern: Normal: <= 5 Contractions in 10 Minutes Resting Tone [place]: Relaxed Heart Rate FHR Baseline Rate: 135 Monitor Mode: External US Variability: Moderate 6-25 bpm Accelerations: 15X15 Decelerations: None Category: Category I Pain Presence: None/Denies Pain Type: N/A Datetime: 06/05/2018 12:34 Assessment Type: Admission Assessment Time of Arrival: 06/05/2018 12:00 EGA: 34.5 Arrived By: Wheelchair Arrived From: Other Unit in Hospital Vaginal Bleeding: None Maternal Assessment Level of Consciousness: Fully Conscious DTR's/Clonus: DTRs 2+; No Clonus Headache: Denies Blurred Vision: No Respiratory Effort: Unlabored; Regular Rhythm; Equal Expansion Breath Sounds, Left: Clear and Equal Breath Sounds, Right: Clear and Equal Nausea/Vomiting: Denies RUQ Epigastric Pain: Denies Lower Extremities Edema: None Degree: None Upper Extremities Edema: None Degree: None Facial Edema: None Fall Risk Assessment History of Falling: (0) No Secondary Diagnosis: (0) No Ambulatory Aid: (0) Bedrest/Nurse Assist IV Therapy: (0) No Gait: (0) Normal/Bedrest/Immobile Mental Status: (0) Oriented to Own Ability Fall Score: 0 Fall Risk Score Definition: No Risk: No action required Pain Assessment Pain Scale: 0 Pain Presence: None/Denies Datetime: 06/05/2018 12:17 Stage of : Antepartum Datetime: 06/05/2018 11:00 Stage of : OB Triage Maternal Assessment Level of Consciousness: Fully Conscious DTR's/Clonus: DTRs 1+ Headache: Denies Breath Sounds, Left: Clear and Equal Breath Sounds, Right: Clear and Equal Nausea/Vomiting: Denies RUQ Epigastric Pain: Denies Labor Evaluation Frequency: IRRE Monitor Mode: External Duration (sec)2399: 40-50 Quality: Mild Pattern: Normal: <= 5 Contractions in 10 Minutes Resting Tone [place]: Relaxed Heart Rate FHR Baseline Rate: 145 Monitor Mode: External US Variability: Moderate 6-25 bpm Accelerations: 15X15 Decelerations: None Category: Category I Pain Assessment Pain Scale: 0 Pain Presence: None/Denies Pain Type: N/A Pain Goal: 3 Membrane Status: Intact Datetime: 06/05/2018 10:15 Fall Score: 0 Fall Risk Score Definition: No Risk: No action required Datetime: 06/05/2018 10:01 EGA: 34.5
[2018-06-15] MEDS: LACTATED RINGER'S 1,000 ML IV SCH ×3 (00:55→14:03)
[2018-06-15] MEDS ORDERED: METOCLOPRAMIDE 10 MG INJ ONE (07:00)
[2018-06-15] MEDS ORDERED: FERROUS SULFATE (EC) 325 MG TAB PO SCH (09:00)
[2018-06-15] MEDS ORDERED: PRENATAL VITAMIN PO SCH (09:00)
[2018-06-15] MEDS ORDERED: CEFAZOLIN 2 GM/50 ML (PMX) 50 ML IVPB SCH (17:00)
[2018-06-15] MEDS ORDERED: METHYLERGONOVINE 0.2 MG INJ IM PRN ×2 (17:00→22:00)
[2018-06-15] MEDS ORDERED: OXYTOCIN 30 UNITS/LR 500 ML IV SCH (17:00)
[2018-06-15] MEDS ORDERED: MISOPROSTOL 200 MCG TAB PR PRN ×2 (17:00→22:00)
[2018-06-15] MEDS ORDERED: CARBOPROST 250 MCG INJ IM PRN ×2 (17:00→22:00)
[2018-06-15] MEDS ORDERED: OXYTOCIN 30 UNITS/LR 500 ML IV PRN ×2 (17:00→22:00)
[2018-06-15] MEDS ORDERED: morphine SULFATE/PF (10 MG/10 ML) INJ ONE (17:07)
--- NOTE | 2018-06-15 17:14 | PREAC ---
Date/Time of Note Date/Time of Note DATE: 06/15/18 TIME: 17:11 Anesthesia Eval and Record Evaluation Time Pre-Procedure Interview DATE: 06/15/18 TIME: 16:32 Age 37 Sex female NPO: 6 hrs Preoperative diagnosis iup @ 36 wks., prev. c/s, twin gestation Planned procedure repeat c/s Past Medical History Past Medical History: Includes Neuro: Other (prolactinoma) : : (2), Para: (1), Gestational age: (36 wks.), Twin , Other (prolactinoma) Surgery & Anesthesia Issues No known issue Meds Anticoagulation: No Beta Haider within 24 hr: No Reason Beta Haider not given: Pt. not on B-Haider Active Scripts Nifedipine* (Procardia*) 10 Mg Capsule, 20 MG PO Q6H, #120 CAP 0 Refills Prov:SUZI CHRISTINA MD 06/07/18 Reported Medications Calcium Citrate* (Citracal*) 950 Mg Tab, 950 MG PO DAILY, TAB 06/14/18 Ferrous Sulfate* (Ferrous Sulfate*) 325 Mg Tabec, 325 MG PO DAILY, TAB 06/14/18 Aspirin* (Aspirin* Chew) 81 Mg Tab.chew, 81 MG PO DAILY, TAB.CHEW 06/05/18 Vit No.124/Iron/FA ( Vitamin Tablet) 1 Each Tablet, 1 EACH PO, TAB 06/05/18 Current Medications Nifedipine (Procardia) 20 mg Q6 PO Last administered on 06/15/18at 11:53; Admin Dose 20 MG; Start 06/15/18 at 00:00 Lactated Ringer's 1,000 ml @ 125 mls/hr Q8H IV Last administered on 06/15/18at 14:03; Admin Dose 125 MLS/HR; Start 06/14/18 at 23:41 Prenat Multivit/ Disease Case Manager/Iron/Folic Ac () 1 tab DAILY PO Last administered on 06/15/18at 08:36; Admin Dose 1 TAB; Start 06/15/18 at 09:00 Ferrous Sulfate (Ferrous Sulfate (Ec)) 325 mg DAILY PO Last administered on 06/15/18at 08:36; Admin Dose 325 MG; Start 06/15/18 at 09:00 Cefazolin Sodium/ Dextrose 50 ml @ 100 mls/hr ONCE IVPB ; Start 06/15/18 at 17:00 Oxytocin/Lactated Ringer's 500 ml @ 125 mls/hr POST IV ; Start 06/15/18 at 17:00 Oxytocin/Lactated Ringer's 500 ml @ 0 mls/hr ONCE PRN IV .VAGINAL BLEEDING; Start 06/15/18 at 17:00 Methylergonovine Maleate (Methergine) 0.2 mg ONCE PRN IM .VAGINAL BLEEDING; Start 06/15/18 at 17:00 Carboprost Tromethamine (Hemabate) 250 mcg ONCE PRN IM .VAGINAL BLEEDING; Start 06/15/18 at 17:00 Misoprostol (Cytotec) 1,000 mcg ONCE PRN TN .VAGINAL BLEEDING; Start 06/15/18 at 17:00 Meds reviewed: Yes Allergies Coded Allergies: No Known Allergy (Unverified , 06/14/18) Allergies Reviewed: Yes Labs/Studies Labs Reviewed: Reviewed by anesthesiologist Result Diagram: 06/14/182126 Laboratory Tests 06/14/18 21:27 Blood Bank Test 06/14/18 21:27 Antibody Screen NEGATIVE Blood Type A POSITIVE Rh Immune Globulin Candidate NO test: Positive Studies: ECG (n/a), CXR (n/a) Pre-procedure Exam Last vitals Vital Signs Date Temp Pulse Resp B/P (MAP) Pulse Ox O2 O2 Flow FiO2 Time Delivery Rate 06/14/18 98.6 113 19 118/83 Room Air 20:48 (95) Airway: Adequate mouth opening, Adequate thyromental dist Mallampati: Mallampati II Teeth: Normal Lung: Normal Heart: Normal ASA Physical Status ASA physical status: 2 Emergency: E Planned Anesthetic General/MAC: TIVA (post delivery of twins) Neuraxial: Spinal Planned Pain Management Sub-arachniod narcotics, Local by surgeon Pre-operative Attestations Prior to commencing anesthesia and surgery, the patient was re-evaluated, there was verification of: *The patient's identity *The results of appropriate recent lab work and preoperative vital signs *The above evaluation not changing prior to induction *Anesthetic plan, risk benefits, alternative and complications discussed with patient/family; questions answered; patient/family understands, accepts and wishes to proceed. [employer] Tug Captain used FELIZ BOWMAN MD Jun 15, 2018 17:14
[2018-06-15] MEDS ORDERED: LACTATED RINGER'S 1,000 ML IV ONE (17:15)
[2018-06-15] MEDS ORDERED: KETOROLAC 30 MG INJ IV PRN (17:30)
[2018-06-15] MEDS ORDERED: MIDAZOLAM 1 MG/ML 2 ML INJ IV PRN (17:30)
[2018-06-15] MEDS ORDERED: ZOLPIDEM 5 MG TAB PO PRN (17:30)
[2018-06-15] MEDS ORDERED: ONDANSETRON 4 MG INJ IV PRN (17:30)
[2018-06-15] MEDS ORDERED: MEPERIDINE 25 MG INJ IV PRN (17:30)
[2018-06-15] MEDS ORDERED: HYDROmorphONE 0.5 MG/0.5 ML SYG IV PRN ×2 (17:30)
[2018-06-15] MEDS ORDERED: DIPHENHYDRAMINE 50 MG INJ IV PRN ×2 (17:30)
[2018-06-15] MEDS ORDERED: NALOXONE (0.4 MG/ML) INJ IV PRN (17:30)
[2018-06-15] MEDS ORDERED: CITRIC ACID/NA CITRATE 30 ML CUP PO ONE (17:30)
[2018-06-15] MEDS ORDERED: NALBUPHINE HCL (10 MG/1 ML) INJ IV PRN (17:30)
[2018-06-15] MEDS ORDERED: ONDANSETRON 4 MG INJ ONE (17:34)
[2018-06-15] MEDS ORDERED: OXYTOCIN 10 UNIT INJ ONE ×2 (17:54→18:29)
[2018-06-15] MEDS ORDERED: MIDAZOLAM 1 MG/ML 2 ML INJ ONE (17:55)
[2018-06-15] MEDS ORDERED: CEFAZOLIN 1 GM INJ ONE (18:28)
[2018-06-15] MEDS ORDERED: DIPHENHYDRAMINE 50 MG INJ ONE (18:30)
--- NOTE | 2018-06-15 18:34 | HP ---
Date/Time of Note Date/Time of Note DATE: 06/15/18 TIME: 18:29 OB - History Hx of Present Free Text/Dictation 37-year-old female 3 para 1 at 36 weeks and 1 day gestation admitted complaining of onset of uterine contraction on 06/14/2018 in a.m. Uterine contractions became more intense today Patient is a twin with mono di-twin She received steroids a week prior to this admission Last Menstrual Period: Oct 13, 2017 Estimated Due Date: July 12, 2018 : 3 Para: 1 Spontaneous : 1 Care: Good Care Ultrasounds: Abnormal US findings (Multiple gestation) Obstetrical Complications: Other (Twin with mono di-twin) Medical Complications: None Past Family/Social History * Past Medical, Surgical, Family and Obstetric Histories reviewed from chart. Blood Type: A+ Rubella: immune RPR/VDRL: Negative GBS Status: Unknown HBsAG: Negative OB Admission Exam Vital Signs Vital Signs Vital Signs Date Temp Pulse Resp B/P (MAP) Pulse Ox O2 O2 Flow FiO2 Time Delivery Rate 06/14/18 98.6 113 19 118/83 Room Air 20:48 (95) Physical Exam HEENT: WNL Heart: Rhythm Normal Lungs: Clear, Equal Abdomen: WNL Extremities: Normal Reflexes: Normal Cervical Dilatation: Fingertip Effacement: 25% Station: -3 Membranes: Intact Heart Rate: 150's (X2) Varibility: Marked Contractions on Admission: < 5 Minutes Apart Date/Time Contractions Began: 06/14/2018 in a.m. Frequency of Contractions: Every 10-15 minutes Duration: Over 45 seconds Intensity: Mild Last 72 hours Lab Results CBC & BMP 06/14/18 21:27 OB Assessment/Plan Reason for admission: section Other Assessment: Previous section x1 at 36 weeks and 1 day [place] di-twin Breech presentation of the first infant Persistent uterine contractions Other plan: Repeat section SUZI CHRISTINA MD Jun 15, 2018 18:34
[2018-06-15] MEDS ORDERED: KETOROLAC 30 MG INJ IV STA (18:40)
--- NOTE | 2018-06-15 18:40 | OPR ---
Operative Report Planned Procedure Procedure date Jun 15, 2018 Procedure(s) Repeat delivery Performed by see signature line Chaperon: DIPAK MOLINA M.D. Anesthesiologist: FELIZ BOWMAN MD Pre-procedure diagnosis 36 weeks and 1 day gestation Previous section Persistent uterine contractions [place] di-twin [id number] Anesthesia Type: [id number] spinal Post-Procedure Post-procedure diagnosis Status post repeat section Findings First baby in [place] breech presentation Second baby vertex Clear amniotic fluids Amniotic membrane were separate Estimated Blood Loss: 500 - 600 mls Specimen(s) Placenta Grafts/Implant(s) none Complication(s) none Pt Condition post procedure: stable Disposition: PACU Procedure Description Under satisfactory anaesthesia a Pfannenstiel incision was made two fingerbreadth above and parallel to the symphysis of pubis around the previous scar and previous scar was removed Incision was extended laterally to the border of the Recti muscles on either sides. Incision was carried down with sharp and blunt dissection until fascia was reached. Anterior Recti muscle fascia was incised in mid portion and incisio n extended laterally to the border of skin incision. Fascia was mobilized from muscle superiorly and Recti muscles were from midline using sharp and blunt dissection. Peritoneum was visualized; Avoiding bowel and bladder it was incised . Incision was extended superiorly and inferiorly. Bladder blade was placed. Posterior peritoneum covering the lower segment of the uterus and lower segment of the uterus were incised.Low transverse uterine incision was made on lower segment of the uterus. Incision extended laterally to the border of Round Lig. on either sides. After rupturing the membranes first baby was delivered via total breech extraction without any difficulty clamping the cord at 2 sites cutting in between baby was handed to awaiting nurse. Second baby was delivered via vertex presentation without any difficulty and again after clamping the cord the 2 sites cutting in between she was handed to awaiting nurse . Amniotic fluid on either sacs were clear. Cord bloods was obtained and cords had 3 vessels . Placenta was delivered spontaneously and appeared intact and complete. Placenta was sent for pathology Intrauterine cavity was rubbed with a laparotomy sponge. Uterine incision was closed in 2 layers using running stitches of No1 Monocryl. Hemostasis appeared secure. Ovaries and Fallopian tubes were within normal limits. Announcing needle, lap sponge and instrument count to be correct abdomen was closed in layers as follows: Peritoneum and Recti muscles with running stitches of 2-0 Vicryl. Fascia with running stitch of No 1 PDS. Subcutaneous tissue with running stitches of 2-0 Monocryl and skin was closed using lucia. Patient tolerated the procedure well and was transferred to [facility] in good condition. SUZI CHRISTINA MD Jun 15, 2018 18:40
[2018-06-15] MEDS ORDERED: AZITHROMYCIN 500MG/NS (PMX) 250 ML IVPB ONE (19:00)
--- NOTE | 2018-06-15 20:37 | PAC ---
Date/Time of Note Date/Time of Note DATE: 06/15/18 TIME: 20:36 Post-Anesthesia Notes Post-Anesthesia Note Last documented vital signs Vital Signs Date Temp Pulse Resp B/P (MAP) Pulse Ox O2 O2 Flow FiO2 Time Delivery Rate 06/14/18 98.6 113 19 118/83 Room Air 20:48 (95) Activity: WNL Respiratory function: WNL Cardiovascular function: WNL Mental status: Baseline Pain reasonably controlled: Yes Hydration appropriate: Yes Nausea/Vomiting absent: Yes FELIZ BOWMAN MD Jun 15, 2018 20:37
--- NOTE | 2018-06-15 20:42 | OPPN ---
Date/Time of Note Date/Time of Note DATE: 06/16/18 TIME: 00:30 Anesthesia Follow up Anesthesia Follow up Last documented vital signs Vital Signs Date Temp Pulse Resp B/P (MAP) Pulse Ox O2 O2 Flow FiO2 Time Delivery Rate 06/14/18 98.6 113 19 118/83 Room Air 20:48 (95) Respiratory function: WNL Cardiovascular function: WNL Comments S: Pt. is POD #1. Min. BT pain. Min. N/V. Min. need for BT pain meds ie. NSAIDS/Opiates. Ambulating. O: VSS, Afeb. A: Min. BT pain sec. to IT MSO4. P: No complications. FELIZ BOWMAN MD Jun 15, 2018 20:42
[2018-06-15 21:30] VITALS: BP 143/93; PULSE 101; RESP 21
[2018-06-15] MEDS ORDERED: LACTATED RINGER'S 1,000 ML IV SCH (21:39)
[2018-06-15] MEDS ORDERED: HYDROCODONE/APAP (5/325) TAB PO PRN (22:00)
[2018-06-15] MEDS ORDERED: LANOLIN HPA 1 PKT TOP PRN (22:00)
[2018-06-15] MEDS ORDERED: NA PHOSPHATE/BIPHOS 133 ML ENEMA PR PRN (22:00)
[2018-06-15] MEDS ORDERED: IBUPROFEN 800 MG TAB PO SCH (22:00)
[2018-06-15] MEDS ORDERED: OXYCODONE/ACETAMINOPHEN (5/325) TAB PO PRN (22:00)
[2018-06-15 23:00] VITALS: BP 143/89; PULSE 98; RESP 20
[2018-06-15] MEDS: CEFAZOLIN 2 GM/50 ML (PMX) 50 ML IVPB SCH (23:11)
[2018-06-16 03:36] VITALS: BP 104/86; PULSE 109; RESP 20
[2018-06-16] MEDS: CEFAZOLIN 2 GM/50 ML (PMX) 50 ML IVPB SCH ×2 (05:20→16:20)
[2018-06-16] MEDS: CLINDAMYCIN 300 MG CAP PO SCH ×5 (05:20→23:47)
[2018-06-16 08:00] VITALS: BP 124/80; PULSE 97; RESP 18
[2018-06-16] MEDS: LACTATED RINGER'S 1,000 ML IV SCH ×2 (09:20→14:26)
[2018-06-16] MEDS: SENNA/DOCUSATE NA (8.6MG/50MG) TAB PO SCH ×2 (09:20→22:17)
[2018-06-16] MEDS ORDERED: BISACODYL 10 MG SUPP PR ONE (11:00)
[2018-06-16 12:10] VITALS: BP 116/78; PULSE 83; RESP 17
--- NOTE | 2018-06-16 16:41 | PN ---
Date/Time of Note Date/Time of Note DATE: 06/16/18 TIME: 16:33 Assessment/Plan VTE Prophylaxis VTE Prophylaxis Intervention: ambulation Lines/Catheters IV Catheter Type (from Nrsg): Peripheral IV Assessment/Plan Assessment/Plan Status post postop day #1 Will advance diet and ambulate Continue to monitor vitals Subjective 24 Hr Interval Summary Passing flatus No bowel movement Constitutional: no complaints, improved, ambulates, BM, flatus, urine output Pain Control: well controlled Exam/Review of Systems Vital Signs Vitals Vital Signs Date Temp Pulse Resp B/P (MAP) Pulse Ox O2 O2 Flow FiO2 Time Delivery Rate 06/16/18 98.9 83 17 116/78 95 Room Air 12:10 (91) Intake and Output 06/15/18 06/15/18 06/16/18 1414:59 22:59 06:59 IntakeIntake Total 1000 ml 1000 ml 100 ml OutputOutput Total 1300 ml 400 ml 900 ml BalanceBalance -300 ml 600 ml -800 ml Exam Free Text/Dictation Abdomen is soft bowel sounds are present Incision is covered Constitutional: alert, oriented, well developed Psych: no complaints, nl mood/affect Head: normocephalic, atraumatic Eyes: nl conjunctiva, EOMI, nl lids, nl sclera ENMT: nl external ears & nose, nl lips & teeth, nl nasal mucosa & septum, mucosa pink and moist Neck: supple, non-tender Respiratory: clear to auscultation, normal air movement Cardiovascular: regular rate and rhythm, nl pulses Gastrointestinal: soft, nl liver, spleen, non-tender Musculoskeletal: nl extremities to inspection, nl gait and stance Extremities: normal pulses Neurological: DIRECTOR LEARNING SERVICES II-XII intact, nl mental status, nl speech, nl strength Skin: nl turgor, rash or lesions Lymph: nl lymph nodes Results Result Diagram: 06/16/18 0607 SUZI CHRISTINA MD Jun 16, 2018 16:41
[2018-06-16 16:55] VITALS: BP 129/88; PULSE 99; RESP 18
[2018-06-16 20:00] VITALS: BP 131/81; PULSE 18; RESP 18
[2018-06-16] MEDS: IBUPROFEN 800 MG TAB PO SCH ×2 (20:00→22:17)
[2018-06-17 03:44] VITALS: BP 109/86; PULSE 94; RESP 18
[2018-06-17] MEDS: CLINDAMYCIN 300 MG CAP PO SCH ×4 (05:50→23:35)
[2018-06-17] MEDS: IBUPROFEN 800 MG TAB PO SCH ×3 (05:50→21:57)
[2018-06-17] MEDS: SENNA/DOCUSATE NA (8.6MG/50MG) TAB PO SCH ×2 (08:15→21:57)
[2018-06-17 08:30] VITALS: BP 106/64; PULSE 69; RESP 16
[2018-06-17 16:14] VITALS: BP 94/54; PULSE 92; RESP 17
--- NOTE | 2018-06-17 17:15 | DS ---
Date/Time of Note Date/Time of Note Home today or next day DATE: 06/17/18 TIME: 17:14 Obstetrical Discharge Record Final Diagnosis Final Diagnosis: delivered Other Final Diagnosis Status post repeat for twin with abnormal presentation Section Section: Repeat Complications Multiple Gestation Condition on Discharge Physical Assessment Last Vitals: See nurse's notes Voiding: Yes Bowel Movement: Yes Breast: Soft, non-tender, Filling Fundus: Firm Abdomen and Incision: Abdomen is soft with present bowel sounds Incision is healing well without induration no erythema Calf Tenderness: No Patient Condition: Good SUZI CHRISTINA MD Jun 17, 2018 17:15
--- NOTE | 2018-06-17 17:17 | DS ---
Date/Time of Note Date/Time of Note DATE: 06/17/18 TIME: 17:15 Discharge Summary Admission/Discharge Info Admit Date/Time Jun 14, 2018 at 23:35 Discharge Date/Time June 17 or 2017 Discharge Diagnosis Status post repeat Patient Condition: Good Procedures Repeat delivery Hx of Present Illness 38-year-old female admitted with contractions at 36 weeks and 4 days and had repeat Hospital Course Hospital course remained uncomplicated Patient tolerated diet well and was ambulating without problems Discharged home on second or third day with good prognosis and condition Home Meds Active Scripts Nifedipine* (Procardia*) 10 Mg Capsule, 20 MG PO Q6H, #120 CAP 0 Refills Prov:SUZI CHRISTINA MD 06/07/18 Reported Medications Calcium Citrate* (Citracal*) 950 Mg Tab, 950 MG PO DAILY, TAB 06/14/18 Ferrous Sulfate* (Ferrous Sulfate*) 325 Mg Tabec, 325 MG PO DAILY, TAB 06/14/18 Aspirin* (Aspirin* Chew) 81 Mg Tab.chew, 81 MG PO DAILY, TAB.CHEW 06/05/18 Vit No.124/Iron/FA ( Vitamin Tablet) 1 Each Tablet, 1 EACH PO, TAB 06/05/18 Follow-up Plan 4 days in clinic for staple removal Primary Care Provider Not On Staff Doctor Time spent on discharge: > 30 minutes Pending Labs Laboratory Tests Test 06/17/18 07:19 White Blood Count 13.3 10^3/ul (4.8-10.8) Red Blood Count 4.23 10^6/ul (4.20-5.40) Hemoglobin 12.3 g/dl (12.0-16.0) Hematocrit 36.6 % (37.0-47.0) Mean Corpuscular Volume 86.5 fl (82.0-101.0) Mean Corpuscular Hemoglobin 29.1 pg (29.0-33.0) Mean Corpuscular Hemoglobin Concent 33.6 g/dl (32.0-37.0) Red Cell Distribution Width 13.8 % (11.5-14.5) Platelet Count 276 10^3/UL (140-415) Mean Platelet Volume 9.9 fl (7.4-10.4) Immature Granulocytes % 1.200 % (0.001-0.429) Neutrophils % 71.7 % (39.0-77.0) Lymphocytes % 16.2 % (15.0-51.0) Monocytes % 8.8 % (0.0-11.0) Eosinophils % 1.8 % (0.0-7.0) Basophils % 0.3 % (0.0-2.0) Nucleated Red Blood Cells % 0.0 /100WBC (0.0-0.0) Immature Granulocytes # 0.160 10^3/ul (0.0-0.031) Neutrophils # 9.5 10^3/ul (1.6-7.5) Lymphocytes # 2.1 10^3/ul (0.8-2.9) Monocytes # 1.2 10^3/ul (0.3-0.9) Eosinophils # 0.2 10^3/ul (0.0-0.5) Basophils # 0.0 10^3/ul (0.0-0.1) Nucleated Red Blood Cells # 0.0 10^3/ul (0.0-0.0) SUZI CHRISTINA MD Jun 17, 2018 17:17
--- NOTE | 2018-06-17 17:19 | PD.PPDC ---
FEATHER WASHER Discharge Instruction Provider Information Physician Information 38-year-old female underwent repeat Diagnosis [id number] Final Diagnosis: [id number] Status post Condition [id number] Patient Condition: Suuva2t Good Diet Vhoox9Xy Diet: Prrgu9d Resume Regular Diet Activity/Restrictions [id number] Activity: Ywsyj1c May Shower [id number] Restrictions: Hyjum8h No Exercising No Lifting Nothing in the Vagina Otqem7Bw Return to Work or School: [address] Aug 18, 2018 Wound/Drain Care Instructions [id number] Wound/Drain Care Instructions: Aqwny4z Keep clean and dry Follow-up Follow-up with Physician: 4, Day/Days (In clinic for staple removal) Return to clinic for [id number] TRANSIT SURVEY WORKER Instructions: Ulkso4t Fever greater than 101 Chills Isehq1Su OB Instructions: Query2v Breast Tenderness Depression Comment: Pelvic rest and no hard activity for 2 months Rlqug8Of Surgical Instructions: Eubhn9k Incisional Drainage Incisional Redness SUZI CHRISTINA MD Jun 17, 2018 17:19
[2018-06-17] MEDS ORDERED: ACET325T33 PO (17:24)
[2018-06-17] MEDS ORDERED: IBUP800T48 PO (17:24)
[2018-06-17] MEDS ORDERED: ACETAMINOPHEN 325 MG TAB PO PRN (17:30)
[2018-06-17 19:30] VITALS: BP 112/84; PULSE 91; RESP 18
[2018-06-18 04:05] VITALS: BP 116/86; PULSE 74; RESP 20
[2018-06-18] MEDS: CLINDAMYCIN 300 MG CAP PO SCH ×2 (05:54→12:00)
[2018-06-18] MEDS: IBUPROFEN 800 MG TAB PO SCH (05:54)
[2018-06-18 08:00] VITALS: BP 101/69; PULSE 79; RESP 20
[2018-06-18] MEDS: SENNA/DOCUSATE NA (8.6MG/50MG) TAB PO SCH (08:18)
[2018-06-18] MEDS ORDERED: MEASLES,MUMPS,RUBELLA VACCINE INJ SC* ONE (09:00)
[2018-06-18] MEDS ORDERED: DIPHTH/TET/ACEL PERTUSS (ADULT) 0.5 ML VIAL IM* ONE (09:00)
--- NOTE | 2018-06-19 15:57 | DELSUM ---
Delivery Summary A-C Datetime Report Generated by CPN: 06/19/2018 15:57 DELIVERY PERSONNEL Computer Information Science Professor: Duvo, Frida MATERNAL INFORMATION Delivery Anesthesia: Spinal Medications in Delivery: SEE ANESTHESIA RECORD Delivery QBL (ml): 500 Placenta Cultured: No Maternal Complications: Other RN Comments: TWINS GESTATION LABOR SUMMARY EDC: 07/12/2018 00:00 No. Babies in Womb: 2 Attempted: No Labor Anesthesia: None LABOR INFORMATION Reason for Induction: Not Applicable Oxytocin: N/A Group B Beta Strep: Not Done Antibiotics # of Doses: 1 Steroids Given: Full Course; >24Hs before Delivery Reason Steroids Not Administered: Not Applicable MEMBRANES Membranes Rupture Method: Artificial Rupture of Membranes: 06/15/2018 17:53 Length of Rupture (hr): 0.02 Amniotic Fluid Color: Clear Amniotic Fluid Amount: Moderate Amniotic Fluid Odor: None STAGES OF LABOR Stage 3 hr: 0 Stage 3 min: 2 CSECTION DELIVERY Primary Indication: Multiple Gestation Secondary Indication: N/A CSection Urgency: Non Elective CSection Incidence: Repeat Labor: Labor Elective: Nonelective CSection Incision: Lower Uterine Transverse BABY A INFORMATION Infant Delivery Date/Time: 06/15/2018 17:54 Method of Delivery: Born in Route : No : N/A Forceps: N/A Vacuum Extraction: N/A Shoulder Dystocia : N/A SHOULDER DYSTOCIA BABY A Delivery Date/Time: 06/15/2018 17:54 PRESENTATION/POSITION BABY A Presentation: Breech Cephalic Presentation: N/A Breech Presentation: Double Footling PLACENTA INFORMATION BABY A Placenta Delivery Time : 06/15/2018 17:56 Placenta Method of Delivery: Manual Removal Placenta Status: Delivered SCORES BABY A Heart Rate 1 min: >100 bpm Resp Effort 1 min: Good Cry Reflex Irritability 1 min: Cough/Sneeze/Pulls Away Muscle Tone 1 min: Active Motion Color 1 min: Body [place], Extremit Blue Resuscitation Effort 1 min: Tactile Stimulation SCORE 1 MIN: 9 Heart Rate 5 min: >100 bpm Resp Effort 5 min: Good Cry Reflex Irritability 5 min: Cough/Sneeze/Pulls Away Muscle Tone 5 min: Active Motion Color 5 min: Body [place], Extremit Blue Resuscitation Effort 5 min: Tactile Stimulation SCORE 5 MIN: 9 INFANT INFORMATION BABY A Gestational Age at Delivery: 36.1 Gestational Status: Late - 34- 36.6 Weeks Infant Outcome : Liveborn Condition : Stable Infant Sex: Female IDENTIFICATION/MEDS BABY A ID Band Number: [id number] ID Band Location: Right Leg; Left Arm Sensor Applied: Yes Sensor Number: [id number] Sensor Location : Cord Clamp Vitamin K Given : Not Given Erythromycin Given: Not Given WEIGHT/LENGTH BABY A Infant Birthweight (gm): 2420 Infant Weight (lb): 5 Weight (oz): 5 Length (in): 18.00 Length (cm): 45.72 CORD INFORMATION BABY A No. Cord Vessels: 3 Nuchal Cord : N/A Cord Blood Taken: Yes Infant Suction: Mouth; Nose ASSESSMENT BABY A Infant Complications: None Physical Findings at Delivery: Within Normal Limits Respirations: Appears Normal Reporting Specialist/ALS Called : Yes Care By: YANN/ MAY RN Transferred To: Remains with Mother BABY B INFORMATION Delivery Date/Time: 06/15/2018 17:55 Method of Delivery : Born in Route : No : N/A Forceps : N/A Vacuum Extraction: N/A Shoulder Dystocia : N/A SHOULDER DYSTOCIA BABY B Infant Delivery Date/Time: 06/15/2018 17:55 PRESENTATION/POSITION BABY B Presentation : Cephalic Cephalic Position : Vertex Vertex Position: Left Occipital Anterior Breech Position: N/A ROM/PLACENTA INFO BABY B Rupture of Membranes: 06/15/2018 17:53 Length of Rupture (hr): 0.03 Placenta Delivery Time : 06/15/2018 17:56 Placenta Method of Delivery: Manual Removal Placental Status : Delivered SCORES BABY B Heart Rate 1 min: >100 bpm Resp Effort 1 min: Good Cry Reflex Irritability 1 min: Cough/Sneeze/Pulls Away Muscle Tone 1 min: Active Motion Color 1 min: Blue/Pale Resuscitation Effort 1 min: Tactile Stimulation; Oxygen; PPV/NCPAP SCORE 1 MIN: 8 Heart Rate 5 min: >100 bpm Resp Effort 5 min: Good Cry Reflex Irritability 5 min: Cough/Sneeze/Pulls Away Muscle Tone 5 min: Active Motion Color 5 min: Blue/Pale Resuscitation Effort 5 min: Tactile Stimulation; Oxygen; PPV/NCPAP SCORE 5 MIN: 8 Heart Rate 10 min: >100 bpm Resp Effort 10 min: Good Cry Reflex Irritability 10 min: Cough/Sneeze/Pulls Away Muscle Tone 10 min: Active Motion Color 10 min: Body [place], Extremit Blue SCORE 10 MIN: 9 INFANT INFORMATION BABY B Gestational Age at Delivery: 36.1 Gestational Status : Late - 34- 36.6 Weeks Infant Outcome : Liveborn Condition : Stable Infant Sex : Female IDENTIFICATION/MEDS BABY B ID Band Number : [id number] ID Band Location : Right Leg; Left Arm Sensor Applied: Yes Sensor Number : [id number] Sensor Location : Cord Clamp Vitamin K Given : Not Given Erythromycin Given : Not Given WEIGHT/LENGTH BABY B Birthweight (gm): 2515 Infant Weight (lb) : 5 Weight (oz): 9 Infant Length (in): 18.00 Length (cm): 45.72 CORD INFORMATION BABY B No. Cord Vessels : 3 Nuchal Cord : N/A Cord Blood Taken : Yes Infant Suction : Mouth; Nose ASSESSMENT BABY B Complications : None Physical Findings at Delivery: Within Normal Limits Respirations : Appears Normal Reporting Specialist/ALS Called : Yes Care By : ZOE CORDOVA/ Xavier HAYDEN Transfer To: Remains with Mother
== END 2018-06-18 14:20 | disposition home or self-care (01) | DRG 786 ==
LOC: L-D 20:34 → OBT 20:34 → L-D 23:35 → PP1 06-15 21:10
PROVIDERS: ADMIT Obstetrics & Gynecology; ATTEND Obstetrics & Gynecology
PROC: 10D00Z1 Extraction of Products of Conception, Low, Open Approach (ICD-10-PCS; principal; 2018-06-15)
DX: O65.5 Obstructed labor due to abnormality of maternal pelvic organs (principal); O60.12X2 Preterm labor second trimester with preterm delivery second trimester, fetus 2; O34.211 Maternal care for low transverse scar from previous cesarean delivery; O30.032 Twin pregnancy, monochorionic/diamniotic, second trimester; O32.8XX2 Maternal care for other malpresentation of fetus, fetus 2; P03.89 Newborn affected by other specified complications of labor and delivery; Z3A.36 36 weeks gestation of pregnancy; Z37.2 Twins, both liveborn
CPT/HCPCS: 36415; 76818; 81003; 85025; 85610; 85730; 86592; 86850; 86900; 86901; 87086; 88307; 96360; 96361; 96372; 99464; J0456; J0690; J1200; J1885; J2175; J2250; J2274; J2405; J2590; J2765; J3105; J7120